=== PATIENT | male | born 1980 | race Caucasian/White ===

== ENCOUNTER 2022-09-21 08:13 | Day surgery (SDC) | payer OTHER, SELFPAY ==
--- NOTE | 2022-09-16 08:21 | EKG12_ITS ---
Test Reason : PRE-OP Blood Pressure : / mmHG Vent. Rate : 073 BPM Atrial Rate : 073 BPM P-R Int : 140 ms QRS Dur : 092 ms QT Int : 370 ms P-R-T Axes : 008 028 026 degrees QTc Int : 407 ms Normal sinus rhythm Normal ECG Confirmed by VIRGIL GROVES, ELIF ([id number]), editor in chief MOE DUNCAN ([id number]) on 09/16/2022 2:21:20 PM Referred By: Deshaun Dickens Confirmed By:ELIF HERMAN MD
[2022-09-16 08:53] LABS: Hematocrit 48.7 % (40-54); Hemoglobin 16.2 g/dL (13.0-16.5); Mean Corp Hgb Conc 33.3 g/dL (32-36); Mean Corpuscular Hgb 31.7 pg (27.0-32.0); Mean Corpuscular Volume 95.3 fL (80-94); Mean Platelet Vol. 11.7 fl (6.2-12.0); Platelet Count 214 K/mm3 (150-450); RBC Distribution Width CV 11.9 % (11.6-14.6); RBC Distribution Width SD 41.3 fl (35.1-43.9); Red Blood Count 5.11 M/mm3 (4.6-6.2); White Blood Count 5.4 K/mm3 (4.4-11.0)
[2022-09-16 09:03] LABS: Prothrombin Time (Protime)PT. 13.2 SECONDS (11.7-14.9)
[2022-09-16 09:04] LABS: Partial Thromboplast Time 28.7 Seconds (24.1-36.2)
[2022-09-16 09:21] LABS: Anion Gap 4 (5-15); BUN 18 mg/dL (7-18); BUN/Creat Ratio 15.3 RATIO (10-20); Calcium,Total 9.6 mg/dL (8.5-10.1); Chloride 111 mmol/L (98-107); Creatinine, Serum 1.18 mg/dL (0.70-1.30); EST Glomerular Filtration Rate 71 mL/min (>60); Est Glom Filt Rate - Afr Amer 86 mL/min (>60); Glucose 102 mg/dL (74-106); Potassium 3.7 mmol/L (3.5-5.1); Sodium Level 143 mmol/L (136-145)
[2022-09-16 09:29] LABS: AST(SGOT) 34 U/L (15-37); Alanine Aminotransfer ALT/SGPT 55 U/L (16-61); Albumin, Serum 3.9 g/dL (3.2-5.0); Alkaline Phosphatase 85 U/L (45-117); Bilirubin, Direct 0.12 mg/dL (0.00-0.30); Globulin 3.4 g/dL (2.2-4.2); Protein, Total 7.3 g/dL (6.4-8.2)
[2022-09-21] VITALS (10 sets, daily range): BP systolic 129–148; BP diastolic 90–108; PULSE 70–95; RESP 16–18; TEMP 36.3–37.2; O2SAT 90–99; BMI 27.1
[2022-09-21] MEDS: Lactated Ringers 1,000 ML 15 ML IV ×2 (08:40→13:18)
--- NOTE | 2022-09-21 10:33 | PCM.HP.BLA ---
History and Physical Date of Admission: 09/21/22 Allergies Penicillins Allergy (Severe, Verified 08/17/22 08:40) Itching Medications budesonide-formoterol HFA 80 mcg-4.5 mcg/actuation aerosol inhaler (Symbicort) 1 inh inhalation ONCE 08/17/22 [History Confirmed 09/10/22] omeprazole 10 mg capsule,delayed release 10 mg PO DAILY 08/17/22 [History Confirmed 09/10/22] rosuvastatin 10 mg tablet 10 mg PO DAILY 08/17/22 [History Confirmed 09/10/22] [facility] Medical History External hemorrhoids Surgical History (Updated 08/17/22 @ 08:38 by Shereen García) H/O hemorrhoidectomy Social History Smoking Status: Former smoker HPI HPI Surgical H&P: Yes HPI: Patient is a 42 y/o M I am seeing for an update history and physical for an upcoming umbilical hernia surgery with Dr. Dickens. Patient denies any recent hospitalizations or illnesses since his last visit. He notes some soreness at the umbilicus. Patient denies any previous side effects or complications with anesthesia previously. Patient denies any cardiac history. He notes a history of asthma. He follows with a business banking sales assistant from [place]. Patient does use a long acting inhaler twice a day. Patient does have a short acting inhaler however he has not had to use it in years. Patient has been approved by [employer]er[employer] for this upcoming surgery. PAtient juli note he consumes daily alcohol. Patient's previous history per Dr. Dickens: 42-year-old gentleman being referred by [facility] TRACY Davey for surgical consultation regarding a work related umbilical hernia. I written compromise surgical consult recommendations will return to her. The patient works on a farm. 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 Since that time he has had an umbilical hernia. His chronic medical problems include hypercholesterolemia and asthma. He does have a chronic cough. He does have a business banking sales assistant. Apparently he has required some advance medical therapy but unfortunately co-pay for certain medications increased incredibly to where he is not currently taking that. Only previous surgeries had was hemorrhoidectomy. ROS General General: No weight change, appetite, fatigue, colon cancer, breast cancer or weakness HEENT HEENT: No difficulty swallowing, eye injury, eye surgery, swollen glands or hoarseness Endo Endocrine: No thyroid disease, diabetes mellitus, thyroid cancer, Hair loss, heat intolerance or cold intolerance Skin Skin: No rash or changing moles Musc Musculoskeletal: No back problems, arthritis, rheumatoid arthritis, gout or joint pain Cardio Cardiovascular: No murmur, pacemaker, heart disease, atrial fibrillation, high blood pressure, heart attack, heart stent, palpitations, shortness of breat with exertion or chest pain Psych Psychiatric: No depression, anxiety or hearing voices Resp Respiratory: No shortness of breath, Yes sleep apnea, Yes cough, No COPD, Yes asthma, No emphysema and No wheezing Gastro Gastrointestinal: No abdominal pain, No nausea or vomiting, No diarrhea, No constipation, No blood in stool, Yes acid reflux, Yes hemorrhoids, No ulcers, No gallbladder problem and No black,tarry stools Hi Hematologic: No blood thinners, No blood disorders, No bleeding, No anemia and No blood clots Neuro Neurologic: No system reviewed and no additional complaints, except as documented, No as per HPI, No abnormal gait, No abnormal hearing, No abnormal movements, No abnormal speech, No behavioral changes, No burning sensations, No confusion, No convulsions, No disequilibrium, No dizziness, No localized weakness, No frequent falls, No headache(s), No lack of coordination, No loss of vision, No memory loss, No numbness, No other visual disturbances, No radicular pain, No restless legs, No sensory deficit, No syncope, No tingling, No tremor(s), No weakness and No other Exam Const General: cooperative, healthy appearing and comfortable [facility] Head: normal to inspection Eyes General: appearance normal, both eyes and all related structures Neck Neck: normal visual inspection Neck mass: No Chest Chest palpation & inspection: normal inspection of the chest Resp Effort & Inspection: normal respiratory effort Auscultation: clear to auscultation bilaterally Cardio Rate: regular rate Rhythm: regular rhythm GI Inspection: normal to inspection Palpation: soft and hernia umbilical (small, nonreducible) Auscultation: normal bowel sounds Musc Cervical Spine: normal cervical lordosis Skin General: no rashes or lesions noted Neuro General: no focal motor deficits and CN's II-XI intact bilaterally Extrem General: normal to inspection Psych Appearance: grossly normal Affect: normal affect Assessment and Plan Assessment and Plan (1) Umbilical hernia without obstruction or gangrene: Status: Acute Plan: Dr. Dickens will plan to perform an open umbilical hernia repair with preperitoneal placement of mesh. Procedure details, risks and benefits have been explained. Patient has had the opportunity to ask and have questions answered. Patient verbally understands and agrees with the plan. Patient will plan to bring his rescue inhaler in case he may need it post-operatively. I have examined the patient and the H&P has been reviewed. There are no clinical changes since date of exam. Deshaun Dickens M.D., F.A.C.S. The patient was seen by pulmonology. He was tried on a different inhaler which made no improvement and he is back on his routine medication. He has a daily chronic cough. Otherwise unchanged. He is desiring to proceed with repair. Deshaun Dickens M.D., F.A.C.S.
[2022-09-21] MEDS: Clindamycin 900 MG/50 ML BAG 75 MG IV (10:50)
--- NOTE | 2022-09-21 10:54 | DCINST_ITS ---
Discharge Instructions Procedure General Surgery Diet Discharge Diet: Light diet - advance as tolerated (if you have questions about your diet instructions, please talk to you doctor.) Activity Discharge Activity: May Not Drive (for 3-5 days or while taking narcotic pain medicine.) May shower in (days): 1 Lifting Restrictions: 10 pounds Dressing / Incision Call your doctor if your incision/area has: Continuous Slow Oozing, Sudden Increased Bleeding, Increased Pain/ Swelling, Increased Redness and Foul Smelling Discharge Call your doctor if you observe: Fever of 101 or Higher Suture Line Care: Avoid Pulling/Pushing and Avoid Pinching/Bending Additional Dressing/Incision Instructions:: Change or remove dressing in 4 days. Leave steri-strips in place for 1 week. Follow Up Care Please Follow Up With: Deshaun Dickens MD When: Call [phone] to make an appointment to be seen in about 10 days. Test Results: Test results from this visit will be discussed in further detail at your follow- up appointment, if applicable. Discharge Plan Admission Attending Provider: Deshaun Dickens Primary Care Provider: Christina Sharma Consulting Providers: Gautam Núñez Discharge Orders/Prescriptions Prescriptions: No Action omeprazole 10 mg capsule,delayed release(DR/EC) 10 mg PO DAILY rosuvastatin 10 mg tablet 10 mg PO DAILY budesonide-formoterol [Symbicort] 80-4.5 mcg/actuation HFA aerosol inhaler 2 inh inhalation BID Disposition Disposition (needs filled in before D/C Order can be placed): Home, Self Care
--- NOTE | 2022-09-21 11:00 | HERN_PTH ---
PATIENT: ODELL LONG LOC: [facility] [place] U[place][id number] AGE/SX: 42/M ROOM: RE09/21/[address]: Dr. Deshaun Dickens MD : 1980 BED: DIS: 09/21/2022 SPEC #: [id number] RECD: 09/21/22 15:58 STATUS: HUBER SANCHEZ #: [id number] DIONE: 09/21/22 11:[address]: Deshaun Dickens DEPT: SURGICAL PATHOLOGY RECD BY: Loreto Rider ENTERED: 09/22/22 09:53 SP TYPE: Hernia OTHR DR: MD Dr. Christina Terry MD Tissues: HERNIA Procedures: Surgery Specimen Level II HEADER OPERATION: Umbilical hernia repair with mesh PRE-OP DIAGNOSIS: Umbilical hernia TISSUE SUBMITTED: Hernia contents MICROSCOPIC DIAGNOSIS Hernia contents: A piece of fibroadipose tissue, consistent with hernia contents. SJ:julia 09/23/2022 MICROSCOPIC DESCRIPTION Slides are reviewed. GROSS DESCRIPTION Received in fixative is one container labeled with the patient's name and designated hernia contents. The specimen consists of an irregular piece of adipose tissue measuring 3.0 x 3.0 x 0.6 cm. Sections do not reveal any mass lesion. Antenna Specialist sections are submitted in one cassette. / SJ:julia 09/22/2022 TC:5 [facility]: [id number]
[2022-09-21] MEDS: Bupivacaine Mpf 0.5% 30 ML VIAL (11:25)
--- NOTE | 2022-09-21 11:33 | PCM.OPRPT ---
Report of Operation Date of Procedure: 09/21/22 Pre-Operative Diagnosis: Symptomatic umbilical hernia Post-Operative Diagnosis: Symptomatic incarcerated umbilical hernia 1 cm in diameter Surgery/Procedure Performed:: Umbilical herniorrhaphy with 6.[address] hernia patch Reference [id number], lot number [id number], expiry date 03/21/2024 Description of Surgical Findings:: Timeout informed consent was obtained. 42-year-old gentleman was taken to the operating placed upon the table underwent general endotracheal intubation anesthesia the abdomen sterilely prepped and draped clindamycin 900 g were given intravenously. A curvilinear incision was made at the inferior portion of the umbilicus sharp and blunt dissection was used to identify preperitoneal fatty tissue that was incarcerated within the hernia. He had to use electrocautery to dissect free and amputate the hernia sac and contents. The defect measured no more than a centimeter in diameter. I could not get clean access to the retrorectus plane so I placed the 6.[address] mesh insurance abdominally and then used a Tamiko clamp to help flatten it. [place] that it opened cleanly. Secured the tails with interrupted 0 Nurolon. Approximated the fascia transversely with simple sutures of 0 Nurolon. [place] that I had good closure. I secured the umbilical skin to the anterior fascia with a 4-0 Monocryl and then repaired the skin with multiple interrupted 4 Monocryl sutures. Surgical glue cotton ball Telfa OpSite dressing was applied. The ciro-incisional areaswith 30 cc of 0.5% Marcaine. Specimen hernia sac and contents. Drains none. Blood loss minimal. The patient was taken to the recovery area in satisfied condition without apparent complication Deshaun Dickens M.D., F.A.C.S. Surgeon: Deshaun Dickens Type of Anesthesia: General and Local Anesthesiologist: Jean-Claude English
[2022-09-21] MEDS: HYDROcodone Bitartrate/Apap 5/325 Tablet PO (14:02)
== END 2022-09-21 14:18 | disposition home or self-care (01) ==
LOC: SDC 08:13 → AC 08:15
PROVIDERS: Anesthesiology; PCP Family Medicine; Referring Provider Surgery; Visit Provider Surgery
PROC: (CPT 49592; principal; 2022-09-21 10:45)
DX: K42.0 Umbilical hernia with obstruction, without gangrene (principal); Z87.891 Personal history of nicotine dependence; J45.909 Unspecified asthma, uncomplicated; E78.00 Pure hypercholesterolemia, unspecified
CPT/HCPCS: 49592; 36415; 80048; 80076; 85027; 85610; 85730; 88302; 93005; C1781; J7120; J2405